=== PATIENT | male | born 1965 | race Caucasian/White ===

== ENCOUNTER 2020-08-22 09:01 | Emergency (ER) | payer SELFPAY ==
--- NOTE | ~2020-08-22 | XR_ITS ---
EXAMINATION: XR CHEST CLINICAL INFORMATION: Bilateral leg swelling COMPARISON: None TECHNIQUE: 2 frontal views and a lateral projection are obtained for 3 views. FINDINGS: The lungs are clear. The vascularity is normal. There is no airspace consolidation or effusion. Heart is within limits of normal size. The vascularity is normal. The hilar and mediastinal contours are unremarkable. Bony structures show mild loss of height to lower thoracic vertebral bodies approximately T11 and T12 with associated bridging osteophytes. No paraspinal soft tissue swelling. XR/XR chest 2V IMPRESSION: 1. Lungs clear. No airspace consolidation, vascular congestion, or effusion. 2. Mild loss of height lower thoracic vertebral bodies approximately T11 and T12 with associated mild degenerative spurring. No paraspinal soft tissue swelling.
--- NOTE | ~2020-08-22 | US_ITS ---
EXAMINATION: US VENOUS ULTRASOUND WITH DOPPLER LOWER EXTREMITY, BILATERAL CLINICAL INFORMATION: Edema COMPARISON: None TECHNIQUE: Ultrasound of the deep veins is performed from the hip to the calf with compression sonography and color and pulse Doppler assessment. Spectral analysis with color-flow imaging is performed. FINDINGS: RIGHT: There is normal venous compression and respiratory variation and augmented flow. The visualized common femoral vein, superficial femoral vein, profunda femoral vein, popliteal vein, and the trifurcation region shows no evidence of deep venous thrombosis. There is no significant popliteal fossa cyst. LEFT: There is normal venous compression and respiratory variation and augmented flow. The visualized common femoral vein, superficial femoral vein, profunda femoral vein, popliteal vein, and the trifurcation region shows no evidence of deep venous thrombosis. Left peroneal vein is not seen. There is no significant popliteal fossa cyst. If the patient's symptoms persist, followup ultrasound in 5 days 7 days might be of value to exclude proximal propagation from a non-visualized calf vein. US/US venous duplex LE BI IMPRESSION: No DVT demonstrated in the bilateral lower extremity.
[2020-08-22 09:38] VITALS: BP 213/122; PULSE 66; RESP 17; TEMP 36.7; O2SAT 98
--- NOTE | 2020-08-22 09:45 | PC.NURSE ---
blood pressure 189/131 RN aware FAY 205/125 RN FAY aware
--- NOTE | 2020-08-22 09:53 | ECG_ITS ---
Test Reason : LEG SWELLING Blood Pressure : / mmHG Vent. Rate : 065 BPM Atrial Rate : 065 BPM P-R Int : 194 ms QRS Dur : 090 ms QT Int : 410 ms P-R-T Axes : 052 -01 120 degrees QTc Int : 426 ms Normal sinus rhythm Minimal voltage criteria for LVH, may be normal variant Possible Inferior infarct , age undetermined Anteroseptal infarct , age undetermined T wave abnormality, consider lateral ischemia Abnormal ECG No previous ECGs available Referred By: Lexie Gan Electronically Signed By:MARGE STEVENSON MD
[2020-08-22 09:58] VITALS: BP 225/130; PULSE 62; RESP 16; O2SAT 98; BMI 45.5
--- NOTE | 2020-08-22 10:26 | ED_ITS ---
HPI - General Adult General Chief complaint: General Medical Stated complaint: eye pain bilateral leg swelling Time Seen by Provider: 08/22/20 09:38 Source: patient and family Mode of arrival: ambulatory Limitations: language barrier (Emirati-speaking) History of Present Illness HPI narrative: 54-year-old male who denies any medical history although has not seen a primary care provider in years presenting to the ED with complaints of left eye swelling/itchiness with watery drainage over the past 4 days. Patient 2nd complaint is bilateral lower extremity swelling over the past 2 days worse today. Patient was noted to be hypertensive in triage as well at 213/122. Denies direct trauma to the eyes, pain to the actual eye, foreign bodies to the eye, changes in vision, headache, dizziness, cough, shortness of breath, dyspnea on exertion, orthopnea, chest pain, nausea/vomiting/diarrhea/constipation, abdominal pain, palpitations, calf tenderness, recent travel, recent immobilization, recent surgery, any estrogen uses, hypercoagulation disorder or any other symptoms complaints or concerns at this time. Related Data Previous Rx's Medication Instructions Recorded erythromycin 0.5 inch OPHTHALMIC (EYE) QID 5 08/22/20 Days #3.5 g furosemide [Lasix] 60 mg PO QAM #90 tab 08/22/20 lisinopril 10 mg PO DAILY #30 tab 08/22/20 naphazoline-pheniramine [Allergy 2 drp OPHTHALMIC (EYE) QID PRN #15 08/22/20 Eye (naphazoline-phen)] ml Allergies Allergy/AdvReac Type Severity Reaction Status Date / Time No Known Allergies Allergy Unverified 12/21/19 14:58 [No Known Allergies*] Review of Systems Review of Systems: Constitutional : No fevers, no chills, No changes in activity, No lethargy, No recent prior head injury, No agitation, No increased fussiness ENT/Mouth : No Ear Pain, No Nasal discharge/drainage Eyes: Positive left eye watery drainage/itchiness/eye swelling/eyelid edema, No Vision changes/blurry/decreased vision, No Eye Pain, No Redness, No Foreign Body, No Photophobia, no discharge, no contact lens uses, no recent welding, no bleeding Cardiovascular : positive lower extremity edema, No Chest Pain, No SOB, no dyspnea on exertion, no orthopnea, no palpitations Respiratory : No Cough Gastrointestinal : No Nausea, No Vomiting, No abdominal Pain Genitourinary : No Dysuria, No Urinary Frequency, No Urinary Incontinence, No Urgency, No Flank Pain Musculoskeletal : No joint pain, No neck stiffness, No back pain/injury Skin : No lacerations Neuro : No unsteady gait, No Paresthesias, No Loss of Consciousness, No altered mental status, No dizziness, No Headache Denies past medical history of HIV, recent trauma, coagulopathy, recent spinal/ epidural procedure, new medication, URI symptoms, close contacts with similar symptoms, tick bite, or known CO2 exposure. Yes all other systems are reviewed and are negative PMFSH Past Medical History Attestation statement: The following information was validated with the patient. Social History Social History Alcohol intake: current Alcohol intake frequency: a few times a month Smoking Status: Never smoker Use of substances other than those prescribed or required for medical reasons: Yes Substance Use Type: Marijuana Advance Directives: Yes Advance Directives Information Provided: Yes Advance Directives on File: No Physical Exam Vital Signs: Vital Signs: Last Vital Signs Temp 98.0 F 08/22/20 09:38 Pulse 63 08/22/20 13:06 Resp 16 08/22/20 13:06 BP 233/123 H 08/22/20 13:06 Pulse Ox 97 08/22/20 13:06 Body Mass Index 45.5 vital signs have been reviewed as normal and appeared to be correct. Blood pressure hypertensive at 213/122. Heart rate normal. Respiration rate normal. Temperature normal. Oxygen saturation normal. Appearance: Alert. Oriented X3. No acute distress. Head: Normal external exam. Normocephalic. Atraumatic. Eyes: PERRLA. EOMI. To left conjunctiva patient has edema with watery drainage noted consistent with chemosis. No purulent drainage is noted. Right conjunctiva is within normal limits. Cornea are normal. Funduscopic exam within normal limits. Sclera normal. Eyelids normal. No papilledema noted. Anterior chamber normal. No photophobia noted. Pressure to right eye is 20. Pressure to left eye is 20. ENT: EAC normal. TM's Normal. Pharynx normal. Uvula midline. Moist mucous membranes. No trismus noted. No drooling noted. No muffled voice noted. Neck: Normal inspection. Neck supple. FROM. No adenopathy. Thyroid Normal. No meningeal signs. No neck mass noted. CVS: Normal heart rate and rhythm. Heart sound normal. Pulses normal throughout. No murmurs/rales/gallops. Respiratory: No respiratory distress. Painless inspiration. Breath sounds normal. No wheezes/rales/rhonchi noted. Chest nontender. No accessory muscle usage noted or decreased air movement noted. Abdomen: Soft and nontender. Bowel sounds normal in all 4 quadrants. No distention noted. No organomegaly noted. No visible injury noted. Back: No CVA tenderness. Full range of motion noted. No rashes/lesion/induration/fluctuance or signs of infection noted. Skin: Skin warm and dry. Normal skin color. Normal skin turgor. No rashe s/lesions/lacerations noted. Extremities: +3 lower pitting extremity edema. No calf tenderness is noted. Extremities exhibit normal range of motion. Extremities nontender. Neuro: Oriented X 3. No motor deficit. No sensory deficit. Reflexes normal. Normal steady gait. No focal neuro deficits noted. Vascular: + radial pulses/+ 2 distal pedal pulses/+2 dorsalis pedis b/l. Normal cap refill. No cyanosis noted to upper extremity nails and lower extremity toes nails. Course Course Course Narrative: 1:20pm - labs reviewed and patient an elevated white blood cell count 71050. Random glucose 125. Alkaline phosphate 125. Otherwise all other labs are within normal limits. UA within normal limits no evidence of UTI. EKG normal sinus rhythm with inverted T-waves and old Q-waves no acute ischemic changes and no prior EKGs to compare to. Although patient denies any dizziness/chest pain/shortness of breath or any other cardiac related complaints. Chest x-ray revealed chronic changes no acute processes noted. Bilateral venous duplex ultrasound negative for DVT or any other acute processes. - I stained the patient's eye patient did not have any uptake of the fluorescein or lesions noted. Pressures are normal bilaterally. Visual acuity see nurse's note. No foreign bodies were noted. - will DC home with Lasix 60 mg along with lisinopril 10 mg instructions follow- up with primary care provider. Family member at bedside reports that he is currently trying to make an appointment at [facility] at this time. Otherwise patient has asymptomatic hypertension at this time therefore to safe to discharge the patient with hypertensive medication instructions to return if any new or worsening symptoms to follow up with the primary care provider that he obtains and the installation and service technician Dr. Anne. Patient and family at bedside understand agree this plan. Medical Decision Making MDM Narrative Medical decision making narrative: 9:53am - 54-year-old male who denies any medical history although has not seen a primary care provider in years presenting to the ED with complaints of left eye swelling/itchiness with watery drainage over the past 4 days. Patient 2nd co mplaint is bilateral lower extremity swelling over the past 2 days worse today. Patient was noted to be hypertensive in triage as well at 213/122. - Plan: Labs, EKG, chest x-ray, visual acuity, stain the eye to evaluate for any foreign bodies/ulceration/abrasions or lesions, obtain pressures of the eyes, chest x-ray, ultrasound of lower extremity. Provide 60 mg of Lasix then re- evaluate. Medical Records Medical records reviewed: Yes I reviewed the patient's medical records. Lab Data Lab results reviewed: Yes I reviewed the patient's lab results. Result diagrams: 08/22/20 11:33 08/22/20 11:33 Labs: Lab Results 08/22/20 08/22/20 08/22/20 Range/Units 11:32 11:33 11:33 WBC 11.5 H (4.8-10.8) X10*3/uL RBC 5.30 (4.60-5.80) X10*6/uL Hgb 14.2 (14.0-18.0) g/dl Hct 42.2 (42-52) % MCV 79.6 L (80-98) fL MCH 26.8 L (27.0-33.0) pg MCHC 33.6 (31.0-36.0) g/dl RDW 14.0 (11.0-16.0) % Plt Count 280 (160-400) X10*3/uL MPV 10.4 (9.4-12.4) fL Immature Gran % (Auto) 0.7 H (0.0-0.4) % Neut % (Auto) 72.9 (45-73) % Lymph % (Auto) 17.1 L (20-40) % [place] % (Auto) 7.2 (2-11) % Eos % (Auto) 1.3 (0-4) % Baso % (Auto) 0.8 (0-2) % Lymph # (Auto) 2.0 (1.2-4.9) X10*3/uL [place] # (Auto) 0.8 (0.1-1.2) X10*3/uL Eos # (Auto) 0.2 (0.0-0.4) X10*3/uL Baso # (Auto) 0.1 (0.0-0.2) X10*3/uL Abs Immat Gran (auto) 0.08 H (0.00-0.03) X10*3/uL Absolute Neuts (auto) 8.4 H (2.0-8.3) X10*3/uL Absolute Nucleated RBC 0.000 (0.0-0.012) X10*3/uL Nucleated RBC % (auto) 0.0 (0.0-0.2) /100WBC PT 11.1 (10.8-13.0) SEC INR 0.9 (0.9-1.1) Sodium (135-145) mmol/L Potassium (3.3-5.1) mmol/L Chloride (96-108) mmol/L Carbon Dioxide (22-29) mmol/L Anion Gap (12-20) BUN (9-16) mg/dL Creatinine (0.5-1.4) mg/dL Estim Creat Clear Calc Estimated GFR Random Glucose (60-115) mg/dL Calcium (8.4-10.2) mg/dL Magnesium (1.6-2.6) mg/dL Total Bilirubin (0.0-1.0) mg/dL AST (5-37) U/L ALT (0-40) U/L Alkaline Phosphatase (39-117) U/L Troponin I High Sens (<3.5-35.0) ng/L B-Natriuretic Peptide (<100) pg/mL Total Protein (6.5-8.0) g/dL Albumin (3.5-5.0) g/dL Urine Color STRAW Urine Appearance CLEAR Urine pH 7.5 (5.0-8.0) Ur Specific [place] 1.010 (1.005-1.025) Urine Protein NEG (NEG-TRACE) MG/DL Urine Glucose (UA) NEG (NEG) MG/DL Urine Ketones NEG (NEG) MG/DL Urine Blood NEG (NEG) Urine Nitrite NEG (NEG) Ur Leukocyte Esterase NEG (NEG) 08/22/20 08/22/20 08/22/20 Range/Units 11:33 11:33 11:33 WBC (4.8-10.8) X10*3/uL RBC (4.60-5.80) X10*6/uL Hgb (14.0-18.0) g/dl Hct (42-52) % MCV (80-98) fL MCH (27.0-33.0) pg MCHC (31.0-36.0) g/dl RDW (11.0-16.0) % Plt Count (160-400) X10*3/uL MPV (9.4-12.4) fL Immature Gran % (Auto) (0.0-0.4) % Neut % (Auto) (45-73) % Lymph % (Auto) (20-40) % [place] % (Auto) (2-11) % Eos % (Auto) (0-4) % Baso % (Auto) (0-2) % Lymph # (Auto) (1.2-4.9) X10*3/uL [place] # (Auto) (0.1-1.2) X10*3/uL Eos # (Auto) (0.0-0.4) X10*3/uL Baso # (Auto) (0.0-0.2) X10*3/uL Abs Immat Gran (auto) (0.00-0.03) X10*3/uL Absolute Neuts (auto) (2.0-8.3) X10*3/uL Absolute Nucleated RBC (0.0-0.012) X10*3/uL Nucleated RBC % (auto) (0.0-0.2) /100WBC PT (10.8-13.0) SEC INR (0.9-1.1) Sodium 139 Cancelled (135-145) mmol/L Potassium 4.2 Cancelled (3.3-5.1) mmol/L Chloride 106 Cancelled (96-108) mmol/L Carbon Dioxide 25 Cancelled (22-29) mmol/L Anion Gap 12 Cancelled (12-20) BUN 9 Cancelled (9-16) mg/dL Creatinine 0.99 Cancelled (0.5-1.4) mg/dL Estim Creat Clear Calc 106.7 Cancelled Estimated GFR > 60 Cancelled Random Glucose 125 H Cancelled (60-115) mg/dL Calcium 8.9 Cancelled (8.4-10.2) mg/dL Magnesium 2.1 (1.6-2.6) mg/dL Total Bilirubin 0.5 Cancelled (0.0-1.0) mg/dL AST 18 Cancelled (5-37) U/L ALT 26 Cancelled (0-40) U/L Alkaline Phosphatase 125 H Cancelled (39-117) U/L Troponin I High Sens 5.0 (<3.5-35.0) ng/L B-Natriuretic Peptide 13 (<100) pg/mL Total Protein 6.9 Cancelled (6.5-8.0) g/dL Albumin 4.1 Cancelled (3.5-5.0) g/dL Urine Color Urine Appearance Urine pH (5.0-8.0) Ur Specific Br[place]gs (1.005-1.025) Urine Protein (NEG-TRACE) MG/DL Urine Glucose (UA) (NEG) MG/DL Urine Ketones (NEG) MG/DL Urine Blood (NEG) Urine Nitrite (NEG) Ur Leukocyte Esterase (NEG) Imaging Data Chest x-ray: Attestation: I personally reviewed and interpreted this imaging study as follows: Radiologist's impression: FINDINGS: The lungs are clear. The vascularity is normal. There is no airspace consolidation or effusion. Heart is within limits of normal size. The vascularity is normal. The hilar and mediastinal contours are unremarkable. Bony structures show mild loss of height to lower thoracic vertebral bodies approximately T11 and T12 with associated bridging osteophytes. No paraspinal soft tissue swelling. XR/XR chest 2V IMPRESSION: 1. Lungs clear. No airspace consolidation, vascular congestion, or effusion. 2. Mild loss of height lower thoracic vertebral bodies approximately T11 and T12 with associated mild degenerative spurring. No paraspinal soft tissue swelling. Venous duplex ultrasound of lower extremity bilaterally: Attestation: I personally reviewed and interpreted this imaging study as follows: Radiologist's impression: RIGHT: There is normal venous compression and respiratory variation and augmented flow. The visualized common femoral vein, superficial femoral vein, profunda femoral vein, popliteal vein, and the trifurcation region shows no evidence of deep venous thrombosis. There is no significant popliteal fossa cyst. LEFT: There is normal venous compression and respiratory variation and augmented flow. The visualized common femoral vein, superficial femoral vein, profunda femoral vein, popliteal vein, and the trifurcation region shows no evidence of deep venous thrombosis. Left peroneal vein is not seen. There is no significant popliteal fossa cyst. If the patient's symptoms persist, followup ultrasound in 5 days 7 days might be of value to exclude proximal propagation from a non-visualized calf vein. US/US venous duplex LE BI IMPRESSION: No DVT demonstrated in the bilateral lower extremity. ECG Data Attestation: I personally reviewed and interpreted this ECG as follows: Interpretation: Normal sinus rhythm with minimal voltage criteria for LVH with inverted T-waves in lead 1/V5/V6 and aVL and Q-waves noted in leads 3/V1/V2/V3. Otherwise no acute ischemic changes are noted. No prior EKGs in our system to compare to at this time. Critical Care Time Critical Care Time Critical Care Time: Yes Total Critical Care Time: 60 Attestation: I personally attest to this time spent taking care of the patient Discharge Plan Discharge Clinical Impression: Hypertension, Chemosis, Pedal edema Patient Disposition: Home, Self-Care Instructions: Heart Healthy Diet (ED), Hypertension (ED) Additional Instructions: You also need to follow-up with a primary care provider. Please call [facility] and I gave you a list of primary care providers that you can call please make an appointment within 30 days. Return if any new or worsening symptoms especially if he develops any dizziness/chest pain or shortness of breath. Prescriptions: New furosemide [Lasix] 20 mg tablet 60 mg PO QAM Qty: 90 RF: 0 lisinopril 10 mg tablet 10 mg PO DAILY Qty: 30 RF: 0 erythromycin 5 mg/gram (0.5 %) ointment 0.5 inch ophthalmic (eye) QID 5 Days Qty: 3.5 RF: 0 Allergy Eye (naphazoline-phen) 0.025-0.3 % drops 2 drp ophthalmic (eye) QID PRN (Reason: allergy symptoms) Qty: 15 RF: 0 Referrals: Samuel Anne [Physician] - 1 day Print Language: Emirati
[2020-08-22] MEDS: Furosemide 100 MG/10 ML VIAL 60 MG IVPUSH (11:36)
[2020-08-22] MEDS: Tetracaine HCl/PF 0.5% Oph Sol 4 ML DROPS 3 DROP EYE-LEFT (11:37)
[2020-08-22] MEDS: Fluorescein Sodium STRIP 1 STRIP EYE-LEFT (11:37)
[2020-08-22 11:39] LABS: MANUAL DIFF FLAG NO
[2020-08-22 11:44] LABS: Glucose Urine UA NEG (NEG); Leukocyte Esterase Urine NEG (NEG); Nitrite Urine NEG (NEG); PH 7.5 (5.0-8.0); Urine Blood NEG (NEG); Urine Ketones NEG (NEG); Urine Protein NEG (NEG-TRACE)
[2020-08-22 11:46] LABS: Appearance Urine CLEAR; Color Urine STRAW
[2020-08-22 11:48] LABS: Basophils Absolute Auto 0.1 X10*3/uL (0.0-0.2); Basophils Percent Auto 0.8 % (0-2); Eosinophils Absolute Auto 0.2 X10*3/uL (0.0-0.4); Eosinophils Percent Auto 1.3 % (0-4); Hematocrit 42.2 % (42-52); Hemoglobin 14.2 g/dl (14.0-18.0); Imm Gran Abs Auto 0.08 X10*3/uL (0.00-0.03); Imm Gran Pct Auto 0.7 % (0.0-0.4); Lymphocytes Percent Auto 17.1 % (20-40); Mean Corpuscular HGB Conc 33.6 g/dl (31.0-36.0); Mean Corpuscular Hemoglobin 26.8 pg (27.0-33.0); Mean Corpuscular Volume 79.6 fL (80-98); Mean Platelet Volume 10.4 fL (9.4-12.4); Monocytes Absolute Auto 0.8 X10*3/uL (0.1-1.2); Monocytes Percent Auto 7.2 % (2-11); Neutrophils Absolute Auto 8.4 X10*3/uL (2.0-8.3); Neutrophils Percent Auto 72.9 % (45-73); Platelet Count 280 X10*3/uL (160-400); White Blood Count 11.5 X10*3/uL (4.8-10.8)
[2020-08-22 11:49] LABS: INTERNATIONAL NORM RATIO 0.9 (0.9-1.1); Prothrombin Time 11.1 SEC (10.8-13.0)
[2020-08-22 12:13] LABS: Alanine Aminotransferase 26 U/L (0-40); Albumin Level 4.1 g/dL (3.5-5.0); Alkaline Phosphatase 125 U/L (39-117); Anion Gap 12 (12-20); Aspartate Amino Transferase 18 U/L (5-37); B Type Natriuretic Peptide 13 pg/mL (<100); Bilirubin Total 0.5 mg/dL (0.0-1.0); Blood Urea Nitrogen 9 mg/dL (9-16); Calcium 8.9 mg/dL (8.4-10.2); Carbon Dioxide 25 mmol/L (22-29); Chloride 106 mmol/L (96-108); Creatinine Clr Calc Pharmacy 106.7; Estimated Glomerular Filt Rate > 60; Glucose Random 125 mg/dL (60-115); Magnesium 2.1 mg/dL (1.6-2.6); Potassium 4.2 mmol/L (3.3-5.1); Sodium 139 mmol/L (135-145); Total Protein 6.9 g/dL (6.5-8.0)
[2020-08-22 13:06] VITALS: BP 233/123; PULSE 63; RESP 16; O2SAT 97
[2020-08-22 13:23] VITALS: BP 233/123; PULSE 63
[2020-08-22] MEDS: lisinopriL 10 MG TABLET PO (13:23)
== END 2020-08-22 13:47 | disposition home or self-care (01) ==
PROVIDERS: Physician Assistant Medical; Emergency Provider Emergency Medicine Emergency Medical Services
DX: H11.422 Conjunctival edema, left eye (principal); R22.43 Localized swelling, mass and lump, lower limb, bilateral; I10 Essential (primary) hypertension; F12.90 Cannabis use, unspecified, uncomplicated
CPT/HCPCS: 36415; 71046; 80053; 81003; 83735; 83880; 84484; 85025; 85610; 93005; 93970; 96374; 99285; 99291; J1940

== ENCOUNTER 2021-12-26 11:35 | Emergency (ER) | payer SELFPAY ==
[2021-12-26 11:53] VITALS: BP 215/129; PULSE 80; RESP 18; TEMP 36.3; O2SAT 95; BMI 36.9
--- NOTE | 2021-12-26 15:55 | PC.NURSE ---
called x 3 to triage for reassessment. No answer. Presumed LWT at this time.
== END 2021-12-26 16:11 | disposition left against medical advice (07) ==
LOC: HO.ED 16:10
PROVIDERS: Emergency Provider Emergency Medicine
DX: S61.215A Laceration without foreign body of left ring finger without damage to nail, initial encounter (principal); W26.0XXA Contact with knife, initial encounter; Y93.G1 Activity, food preparation and clean up; Y92.9 Unspecified place or not applicable; Y99.9 Unspecified external cause status
CPT/HCPCS: 99281